=== PATIENT | male | born 1955 | race African-American/Black ===

== ENCOUNTER → 2017-04-23 | Outpatient (CLI) | payer BC ==
[2017-04-25 08:11] LABS: IMMUNOGLOBULIN E 374 IU/mL (0-100)
[2017-04-26 11:38] LABS: F026-IGE PORK <0.10 kU/L (Class 0); F027-IGE BEEF <0.10 kU/L (Class 0)
[2017-04-26 13:03] LABS: F052-IGE CHOCOLATE/COCOA <0.10 kU/L (Class 0)
== END ==
LOC: OD 13:23
PROVIDERS: ATTEND Otolaryngology
DX: J30.9 Allergic rhinitis, unspecified (principal)
CPT/HCPCS: 36415; 82785; 86317